=== PATIENT | female | born 1975 | race Caucasian/White ===

== ENCOUNTER 2021-02-08 06:30 | Emergency (ER) | payer OTHER | END 2021-02-08 06:55 | disposition home or self-care (01) | LOC: ER1 06:30 | DX: S61.412A Laceration without foreign body of left hand, initial encounter (principal); F17.200 Nicotine dependence, unspecified, uncomplicated; W26.8XXA Contact with other sharp object(s), not elsewhere classified, initial encounter | CPT/HCPCS: 12001; 99282 ==

== ENCOUNTER 2021-03-27 16:31 | Emergency (ER) | payer OTHER | END 2021-03-27 17:40 | disposition home or self-care (01) | LOC: ER1 16:31 | DX: S63.619A Unspecified sprain of unspecified finger, initial encounter (principal); F17.200 Nicotine dependence, unspecified, uncomplicated; F41.9 Anxiety disorder, unspecified; F17.290 Nicotine dependence, other tobacco product, uncomplicated; Z88.5 Allergy status to narcotic agent; W01.0XXA Fall on same level from slipping, tripping and stumbling without subsequent striking against object, initial encounter | CPT/HCPCS: 73130; 99283 ==